=== PATIENT | female | born 1985 | race African-American/Black ===

== ENCOUNTER 2019-01-14 12:36 | Inpatient (IN) | payer MEDICAID ==
[~2019-01-14] VITALS: Ht 170.2 cm; Wt 74.4 kg
--- NOTE | 2019-01-14 13:19 | NUR ---
RECTAL BLEEDING X 2 WEEKS, WITH EPIGASTRIC PAIN
[2019-01-14] MEDS ORDERED: PRED20TA PO (13:27)
[2019-01-14] MEDS ORDERED: PANT40TA2 PO (13:27)
[2019-01-14] MEDS ORDERED: RIVA10TA PO (13:27)
[2019-01-14] MEDS ORDERED: SUCR1ORA PO (13:27)
--- NOTE | 2019-01-14 13:30 | NUR ---
LABS AND URINE SENT TO LAB
[2019-01-14 13:31] LABS: BASOPHILS % (AUTO) 0.5 % (0.0-2.0); EOSINOPHILS % (AUTO) 3.8 % (0.0-6.0); HEMATOCRIT 28 % (33-45); HEMOGLOBIN 8.7 g/dL (11.5-14.8); LYMPHOCYTES # (AUTO) 1.5 /CMM (0.8-4.8); LYMPHOCYTES % (AUTO) 20.8 % (20.0-44.0); MEAN CORPUSCULAR HGB CONC 31 g/dl (31.0-36.0); MEAN CORPUSCULAR VOLUME 71 fL (82-100); MONOCYTES # (AUTO) 0.6 /CMM (0.1-1.30); MONOCYTES % (AUTO) 8.5 % (2.0-12.0); NEUTROPHILS # (AUTO) 4.8 /CMM (1.8-8.9); NEUTROPHILS % (AUTO) 66.4 % (43.0-81.0); PLATELET COUNT (AUTO) 344 /CMM (150-450); RED BLOOD CELL COUNT(AUTO) 3.97 MIL/uL (4.0-5.2); WHITE BLOOD COUNT (AUTO) 7.2 K/uL (4.3-11.0)
[2019-01-14 13:35] LABS: APPEARANCE,URINE Clear (CLEAR); BILIRUBIN,URINE Negative (NEGATIVE); BLOOD, URINE Negative Ery/uL (NEGATIVE); COLOR,URINE Yellow (YELLOW); KETONES,URINE Negative (NEGATIVE); LEUKOCYTE ESTERASE ,URINE Negative (NEGATIVE); NITRITE, URINE Negative (NEGATIVE); PROTEIN,URINE Negative (NEGATIVE); UGLUCOSE Negative (NEGATIVE)
[2019-01-14 13:44] LABS: CALCIUM, SERUM 8.2 mg/dL (8.5-10.1); CREATININE 0.6 mg/dL (0.6-1.3); POTASSIUM 3.7 mmol/L (3.5-5.1)
[2019-01-14 13:47] LABS: BACTERIA,URINE Rare /HPF (None Seen); RBC,URINE 0-3 /HPF (0-2); SQUAMOUS EPITHELIAL CELL,UR Moderate /HPF (None Seen)
[2019-01-14 13:49] LABS: ALBUMIN 2.8 g/dL (3.4-5.0); BILIRUBIN,DIRECT 0.2 mg/dL (0.0-0.2); BILIRUBIN,TOTAL 0.6 mg/dL (0.2-1.0); TOTAL PROTEIN, SERUM 5.8 g/dL (6.4-8.2)
--- NOTE | 2019-01-14 14:20 | NUR ---
CALLED NURSING SUP REQUESTED TELE BED
--- NOTE | 2019-01-14 14:23 | NUR ---
PT ENDORSED TO [facility] FOR MISAEL
[2019-01-14] MEDS ORDERED: HYDROMORPHONE 1 MG/1 ML DISP.SYRIN ONE ×3 (14:26→16:33)
[2019-01-14] MEDS ORDERED: ONDANSETRON HCL/PF 4 MG/2 ML VIAL ONE (14:26)
[2019-01-14] MEDS ORDERED: IV NS 0.9% 1,000 ML BAG IV ONE (14:30)
[2019-01-14] MEDS ORDERED: ONDANSETRON HCL/PF - ER 4 MG/2 ML VIAL IV ONE (14:30)
[2019-01-14] MEDS ORDERED: HYDROMORPHONE INJ 0.5 MG/0.5 ML SYRINGE IV ONE ×3 (14:30→17:00)
[2019-01-14] MEDS ORDERED: IOHEXOL-300 100 ML VIAL IV ONE (14:34)
[2019-01-14] MEDS ORDERED: IV NS 0.9% 250 ML IV ONE (14:34)
[2019-01-14] MEDS ORDERED: CT SWABBABLE VALVE TRANS SET 1 EA INFUS.SET MC ONE (14:34)
[2019-01-14] MEDS ORDERED: PANT40TA4 PO (14:52)
[2019-01-14] MEDS ORDERED: CLON1TAB12 PO (14:52)
[2019-01-14] MEDS ORDERED: DOCU-141 PO (14:52)
[2019-01-14] MEDS ORDERED: MULT1CAP44 IV (14:52)
[2019-01-14] MEDS ORDERED: PROPRANOLOL HCL (14:52)
[2019-01-14] MEDS ORDERED: ESCI10TA BC (14:52)
[2019-01-14] MEDS ORDERED: ALBU18HF2 IH (14:52)
[2019-01-14] MEDS ORDERED: GABA-534 PO (14:52)
[2019-01-14] MEDS ORDERED: GENT5DRO4 OP (14:52)
[2019-01-14] MEDS ORDERED: ASPI-605 PO (14:52)
[2019-01-14] MEDS ORDERED: ZOLP10TA2 PO (14:52)
[2019-01-14] MEDS ORDERED: BECL10.6 IH (14:52)
[2019-01-14] MEDS ORDERED: TRIA80OI TP (14:52)
--- NOTE | 2019-01-14 15:32 | NUR ---
REPORT GIVEN TO ANYA NURSE AT 3RD FLOOR; PT WILL BE TRANSPORTED TO 3RD DIANA VIA ACLS PROTOCOL
[2019-01-14 17:00] VITALS: BP 111/63
--- NOTE | 2019-01-14 17:06 | NUR ---
PT TRANSPORTED TO 3RD FLOOR
--- NOTE | 2019-01-14 17:07 | NUR ---
LINE BUILDERPRODUCT OPERATIONS ASSOCIATE NOTES PATIENT ADMITTED FROM ER REPORT GIVEN BY TIMBO PRETTY. ORIENTED TO THE ROOM. NEEDS ATTENDED AND ANTICIPATED, KEPT COMFORTABLE. SHOW HOW TO USE CALL LIGHT, PLACED WITHIN REACH. WILL CONTINUE TO MONITOR ACCORDINGLY.
--- NOTE | 2019-01-14 17:30 | NUR ---
WELFARE CENTRE MANAGER NOTES PATIENT SEEN AND EVALUATED BY DR JO-ANN PRESSLEY. PER MD HE WILL PUT IN ORDERS.
[2019-01-14 17:41] LABS: OCCULT BLOOD STOOL NEGATIVE (NEGATIVE)
[2019-01-14] MEDS ORDERED: MAGNESIUM HYDROXIDE 30 ML UDC PO PRN (18:30)
[2019-01-14] MEDS ORDERED: Z GUARD REMEDY 2 OZ OINT TP PRN (18:30)
[2019-01-14] MEDS ORDERED: ZOLPIDEM TARTRATE 5 MG TABLET PO PRN (18:30)
[2019-01-14] MEDS ORDERED: ACETAMINOPHEN 325 MG TABLET PO PRN (18:30)
[2019-01-14] MEDS ORDERED: MAG HYDROX/AL HYDROX/SIMETH 30 ML UDC PO PRN (18:30)
--- NOTE | 2019-01-14 18:50 | NUR ---
STOCKROOM KEEPER NOTES CLARIFIED WITH DR PRESSLEY REGARDING LOVENOX ORDER, AWAITING FOR CALL BACK. ENDORSED TO NIGHT NURSE FOR CONTINUITY OF CARE.
--- NOTE | 2019-01-14 19:00 | NUR ---
CLINICAL PROFESSOR NOTES PATIENT IN BED ALERT ORIENTED X 4. NO ACUTE DISTRESS NOTED. BREATHING UNLABORED. NO SOB NOTED. IV ACCESS PATENT AND INTACT, NO REDNESS, NO SWELLING NOTED. DUE MEDICAITONS GIVEN, NO ASE NOTED. NEEDS ATTENDED AND ANTICIPATED. SAFETY MEASURES IN PLACE, CALL LIGHT WITHIN REACH. WILL ENDORSE TO NIGHT NURSE FOR CONTINUITY OF CARE.
--- NOTE | 2019-01-14 19:25 | NUR ---
RN OPENING NOTES BEDSIDE REPORT RECIEVED FROM JEANIE PRETTY. PATIENT IN BED ALERT ORIENTED X 4. NO ACUTE DISTRESS NOTED. BREATHING UNLABORED. NO SOB NOTED. IV ACCESS PATENT TO LEFT EJ INTACT, NO REDNESS, NO SWELLING NOTED. REVIEWED PAIN MANAGEMENT PLAN. VERBALIZED UNDERSTANDING. STATES,"I DON'T THINK THAT WILL HELP ME. I HAVE DOCUMENTATION FROM THIS OTHER HOSPITAL AND THEY WERE GIVING ME 3 TO 4 MG. I DON'T THINK THAT WILL BE ENOUGH INFORMED THAT WE WILL TRY THE ORDERED DOSE BEFORE ASKING THE DOCTOR FOR ADDITIONAL MEDICATION. CALL LIGHT WITHIN REACH. BED DOWN LOCKED VERBALIZED UNDERSTANDING TO CALL FOR ASSISTANCE NEEDED.
[2019-01-14] MEDS ORDERED: ALBUTEROL FS 2.5 MG/0.5 ML VIAL.NEB NEB SCH (19:30)
--- NOTE | 2019-01-14 19:32 | NUR ---
PATIENT REFUSING LOVENOX AT THIS TIME. PATIENT REFUSING LOVENOX AT THIS TIME INFORMED THAT IT IS IMPORTANT TO GET TO PREVENT BLOOD CLOTS. "I DON'T WANT TO TAKE THAT. JUST GIVE IT TO ME LATER WHEN YOU GIVE ME MY PAIN MEDICATION."
[2019-01-14 20:48] VITALS: BP 107/59
[2019-01-14] MEDS: ENOXAPARIN SODIUM 80 MG/0.8 ML DISP.SYRIN SQ SCH (20:48)
[2019-01-14] MEDS: HYDROMORPHONE INJ 2 MG/ML DISP.SYRIN IV PRN (20:49)
[2019-01-14] MEDS: ONDANSETRON HCL/PF 4 MG/2 ML VIAL IVP PRN (20:50)
--- NOTE | 2019-01-14 20:50 | NUR ---
lovenox administered. reviewed with rip matthews breathing txs, pain management patient agreed to take ordered lovenox. georgia hitchcock md paged in regards to pain medications management patient is adamant that ordered dose for pain management 2mg dilaudid every 4 hours is not enough. dilaudid administered as ordered. analysis manager rip paged [phone] rip matthews called back clarified breathing treatment orders. new orders recieved. reviewed pain management orders and he states he does not want to increase the dose as patient was just seen at [facility] where she had colonoscopy with tatoyan that was negative for gi bleed and she had pain med seeking behavior there. no new orders in regards to pain management.
[2019-01-14] MEDS ORDERED: ALBUTEROL FS 2.5 MG/0.5 ML VIAL.NEB NEB PRN (21:16)
[2019-01-15] MEDS: HYDROMORPHONE INJ 2 MG/ML DISP.SYRIN IV PRN ×3 (00:28→08:52)
[2019-01-15 00:53] VITALS: BP 110/60
[2019-01-15 03:57] VITALS: BP 111/62
[2019-01-15] MEDS: ONDANSETRON HCL/PF 4 MG/2 ML VIAL IVP PRN (04:52)
--- NOTE | 2019-01-15 06:30 | NUR ---
RN CLOSING PM NOTES PATIENT IN BED ALERT ORIENTED X 4. NO ACUTE DISTRESS NOTED. BREATHING UNLABORED. NO SOB NOTED. IV ACCESS PATENT TO LEFT EJ INTACT, NO REDNESS, NO SWELLING NOTED. CALL LIGHT WITHIN REACH. BED DOWN LOCKED VERBALIZED UNDERSTANDING TO CALL FOR ASSISTANCE NEEDED.
--- NOTE | 2019-01-15 07:17 | NUR ---
INTERNET SITE DESIGNER OPENING NOTES RECEIVED PT AWAKE IN BED IN NO ACUTE SIGNS OF DISTRESS. A/O X4. ABLE TO MAKE NEEDS AND CONCERNS KNOWN WITH COMPLAINED THAT SHE'S NOT GETTING THE RIGHT DOSE OF DILAUDID FOR HER PAIN, WILL INFORMED MD THIS MORNING. ON ROOM AIR, BREATHING EVEN AND UNLABORED. ON TELEMONITORING WITH CURRENT READING OF SR WITH HR ON THE 90'S, NO C/O CARDIAC DISTRESS VOICED. IV ACCESS ON LEJ INTACT, PATENT AND FLUSHES WELL. BED IN LOW LOCKED POSITION WITH SR UP X2. CALL LIGHT WITHIN REACH. WILL CONTINUE TO MONITOR PT ACCORDINGLY.
[2019-01-15] MEDS ORDERED: BUDESONIDE RESPULE INH 0.25 MG/2 ML AMPUL.NEB NEB SCH (07:30)
[2019-01-15 08:00] VITALS: BP 104/56
--- NOTE | 2019-01-15 08:52 | NUR ---
RN NOTES/ PAIN MANAGEMENT PT C/O CRAMPING PAIN ON ABDOMEN AND BURNING PAIN ON RECTUM WITH SCALE OF 10/10. PRN DILAUDID 10MG IVP ADMINISTERED AT 0852. WILL CONTINUE TO MONITOR AND REASSESS PT.
[2019-01-15] MEDS ORDERED: MULTIVIT W/MINERALS 1 TAB TABLET PO SCH (09:00)
[2019-01-15] MEDS ORDERED: GABAPENTIN 300 MG CAPSULE PO SCH (09:00)
[2019-01-15] MEDS ORDERED: ESCITALOPRAM OXALATE (10 MG) 10 MG TABLET PO SCH (09:00)
[2019-01-15] MEDS: ENOXAPARIN SODIUM 80 MG/0.8 ML DISP.SYRIN SQ SCH (09:00)
[2019-01-15] MEDS ORDERED: clonazePAM 1 MG TABLET PO SCH (09:00)
[2019-01-15] MEDS ORDERED: GENTAMICIN OPTH SOLN 0.3% 5 ML BOTTLE OP SCH (09:00)
--- NOTE | 2019-01-15 11:00 | NUR ---
RN DISCHARGED NOTES PATIENT SEEN BY DR PRESSLEY THIS MORNING WITH ORDER TO DISCHARGE PT. PT IS A/O X4, SAME ABLE TO MAKE NEEDS KNOWN. V/S TAKEN, STABLE AND RECORDED. PT CHANGED HERSELF TO [facility] AND LEFT UNIT AMBULATORY AT ABOUT 0920 WITHOUT INFORMING ANY STAFF. WENT TO STOP HER OUTSIDE THE BUILDING TO GO BACK TO UNIT TO SIGNED ALL DISCHARGED PAPERS AND REMOVED IV ACCESS. PT REFUSED TO GO BACK INSIDE THE HOSPITAL, REFUSED TO LISTEN TO DISCHARGE INSTRUCTIONS, REFUSED TO SIGNED EXIT CARE. LEFT EJ REMOVED OUTSIDE THE HOSPITAL WITH NO BLEEDING NOTED. PT REFUSED TO PUT DRY DRESSING ON IV SITE. PATIENT DISCHARGED HOME IN STABLE CONDITION. CALLED PERSON TO NOTIFY [employer] AT TEL # [phone] AND SPOKE TO FEMALE PERSON BUT SHE SAID THAT SHE DIDN'T KNOW ANY PERSON WITH A NAME JOSE DAVID ESCOBAR. AND CHARGE NAME AWARE OF DISCHARGE.
== END 2019-01-15 11:00 | disposition home or self-care (01) | DRG 245 ==
LOC: ER 12:41 → TELE 15:11 → MED 01-15 10:48
PROVIDERS: ADMIT Internal Medicine; ATTEND Internal Medicine
DX: K51.911 Ulcerative colitis, unspecified with rectal bleeding (principal); M32.9 Systemic lupus erythematosus, unspecified; K21.9 Gastro-esophageal reflux disease without esophagitis; Z86.711 Personal history of pulmonary embolism; Z90.49 Acquired absence of other specified parts of digestive tract; Z87.11 Personal history of peptic ulcer disease; Z86.718 Personal history of other venous thrombosis and embolism; Z79.82 Long term (current) use of aspirin; Z79.01 Long term (current) use of anticoagulants; M35.00 Sjogren syndrome, unspecified; Z88.4 Allergy status to anesthetic agent; Z88.5 Allergy status to narcotic agent; Z88.8 Allergy status to other drugs, medicaments and biological substances; Z79.51 Long term (current) use of inhaled steroids; Z79.899 Other long term (current) drug therapy; K29.70 Gastritis, unspecified, without bleeding; F41.9 Anxiety disorder, unspecified; F32.9 Major depressive disorder, single episode, unspecified
CPT/HCPCS: 36415; 80048-TC; 80076-TC; 81000-TC; 82272-TC; 83690-TC; 84702-TC; 84703-TC; 85025-TC; 85610-TC; 86850-TC; 87081-TC; G0378; J1170; J1650; J2405; J7030; J7050; Q9967